=== PATIENT | male | born 1985 | race Caucasian/White ===

== ENCOUNTER 2020-04-19 15:58 | Emergency (ER) | payer OTHER, SELFPAY ==
[2020-04-19 16:39] VITALS: BP 118/82; PULSE 71; RESP 18; TEMP 37.1; O2SAT 98; BMI 25.7
--- NOTE | 2020-04-19 17:00 | HMH.EDUTC ---
[facility] [place] Clinical Impression: Encounter for laboratory testing for COVID-19 virus Disposition: Home, Self-Care Condition on Discharge: Good Instructions: Preventing the Spread of Coronavirus Discharge Instructions Additional Instructions: Call back to the hospital later this evening around 8pm to see if your test results are back and the result Self quarantine while awaiting your result Return if needed straight to ER if any life threatening symptoms Referrals: PCP,No [Primary Care Provider] - As needed Time of Disposition: 17:03 Medical Decision Making - Luciano Inquiry Pt receiving controlled substance: No Luciano was queried for this patient: No Vital Signs: 04/19/20 16:39 Temperature 98.8 F Temperature Source Oral Pulse Rate [Right Brachial] 71 Respiratory Rate 18 Blood Pressure [Right Arm] 118/82 Blood Pressure Mean [Right Arm] 94 Blood Pressure Source [Right Arm] Automatic Cuff Blood Pressure Position [Right Arm] Sitting 02 Sat by Pulse Oximetry 98 Oxygen Delivery Method Room Air Orders (Tests/Meds): ORDERS Category Date Time Status Covid-19 Nasal PCR ([facility]) Routine Lab 04/19/20 16:40 Received [facility] [place] - General Stated complaint: COVID Testing Time Seen by Provider: 04/19/20 17:00 Mode of Arrival: Ambulatory Source of Information: Patient Limitations: No Limitations Description of Symptoms (Recalled from Triage Doc. by RN): PATIENT REQUESTING COVID TEST. 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 some wearing masks and others not no sure if he may have been exposed to COVID Denies any symptoms at this time - Related Data Allergies Allergy/AdvReac Type Severity Reaction Status Date / Time No Known Allergies Allergy Verified 04/19/20 16:42 - Worker's Comp Is this a Worker's Comp case?: No [facility] History - Hepatitis A Screen Drug use history?: No High risk sexual behaviors?: No History of sexually transmitted infection?: No Currently employed?: No Childcare worker?: No Do you have indoor plumbing?: Yes Do you have electricity?: Yes Attestation statement:: This patient has been screened for Hepatitis A risk factors. I have reviewed the patient's past medical history: Yes Laterality Cases: Bilateral: Tonsillectomy - Social History Alcohol Intake: never Occupational Status: other ROS Obtained: Yes All systems reviewed & no additional complaints, Yes Systems reviewed as appropriate & no additional complaints - Constitutional Constitutional: Reports system reviewed and no additional complaints, except as docu, Denies body ache, Denies chills, Denies fever(s), Denies headache(s) - ENT Ears, Nose, Mouth, and Throat: Denies otalgia, Denies sinus pain, Denies sinus pressure, Denies sore throat - Cardiovascular Cardiovascular: Reports system reviewed and no additional complaints, except as docu, Denies chest pain, Denies dyspnea - Respiratory Respiratory: No chest congestion, No cough, No dyspnea - Gastrointestinal Gastrointestingal: Reports: system reviewed and no additional complaints, except as docu Physical Exam - General General appearance: alert, in no apparent distress - ENT ENT exam: Present: normal exam, normal oropharynx, mucous membranes moist, TM's normal bilaterally, normal external ear exam - Respiratory Respiratory exam: Present: normal lung sounds bilaterally. Absent: respiratory distress - Cardiovascular Cardiovascular exam: Present: regular rate, normal rhythm. Absent: JVD - Abdominal Exam Abdominal exam: Present: so
[2020-04-19 17:19] VITALS: BP 118/82; PULSE 71; RESP 18; TEMP 37.1; O2SAT 98
== END 2020-04-19 17:24 | disposition home or self-care (01) ==
PROVIDERS: Emergency Provider Nurse Practitioner
DX: Z20.828 Contact with and (suspected) exposure to other viral communicable diseases (principal)
CPT/HCPCS: 99201; U0003

== ENCOUNTER 2020-05-03 19:27 | Emergency (ER) | payer OTHER, SELFPAY ==
[2020-05-03 19:58] VITALS: BP 132/82; PULSE 83; RESP 20; TEMP 37.1; O2SAT 98; BMI 26.4
[2020-05-03 20:03] LABS: UTC Strep Screen (Rapid) Negative (Negative)
--- NOTE | 2020-05-03 20:08 | HMH.EDUTC ---
[facility] [place] Disposition Clinical Impression: Sore throat (viral), Encounter for laboratory testing for COVID-19 virus Disposition: Home, Self-Care Condition on Discharge: Good Instructions: Sore Throat Additional Instructions: *Monitor Temp, Over the counter Motrin or Tylenol as directed/as needed Tylenol every 4 hours and Motrin every 6 hours (as long as your family doctor has told you that you can take it) for fever or pain. and straight to ER if unable to lower temp less than 101.0 after medication given *Warm salt water gargles may help to soothe the throat *Throat Lozenges *Warm fluids like tea with honey may help to soothe the throat *Sleep elevated *Humidifier/Vaporizer Your throat swab was sent for culture. Those results are typically sent to your primary care. Be sure to follow up in 2-3 days with your family doctor/primary care physician if no improvement so they can review those result and treat if necessary. If you don?t have a primary care doctor, I recommend you get one but in the mean time, you will have to return to a walk in clinic Follow up IMMEDIATELY for new or worsening symptoms or no Noticeable improvement over the next 48-72 hours. 911 for difficulty breathing or swallowing You was tested for today for COVID19 your test result should be back later this evening, you may call back later this evening to see if your test results are back and the result You was given a handout with instructions for Self Quarantine and Self isolation for while you wait on test results and what to do if they are positive Referrals: Tonja Andres PA [Primary Care Provider] - As needed Forms: Work/School Release Time of Disposition: 20:11 Medical Decision Making - Luciano Inquiry Pt receiving controlled substance: No Luciano was queried for this patient: No Vital Signs: 05/03/20 19:58 Temperature 98.7 F Temperature Source Oral Pulse Rate [Right Brachial] 83 Respiratory Rate 20 Blood Pressure [Right Arm] 132/82 Blood Pressure Mean [Right Arm] 98 Blood Pressure Source [Right Arm] Automatic Cuff Blood Pressure Position [Right Arm] Sitting 02 Sat by Pulse Oximetry 98 Oxygen Delivery Method Room Air - Lab Data Lab results reviewed: Yes: I reviewed the patient's lab results. Lab Results 05/03/20 19:54: Strep Scn Rapid Clinic Negative Orders (Tests/Meds): ORDERS Category Date Time Status Covid-19 Nasal PCR ([facility]) Routine Lab 05/03/20 19:54 Received Strep Screen Confirmation Stat Micro 05/03/20 19:54 Received [facility] UTC HPI - General Stated complaint: fever sore throat Time Seen by Provider: 05/03/20 20:08 Mode of Arrival: Ambulatory Source of Information: Patient Limitations: No Limitations Description of Symptoms (Recalled from Triage Doc. by RN): PATIENT C/O SORE THROAT SINCE THIS MORNING. REQUESTING COVID TEST HEENT Symptoms (Recalled from RN notes): No Resp Symptoms (Recalled from RN notes): No Skin Symptoms (Recalled from RN notes): No MS Symptoms (Recalled from RN notes): No Functional Status (Recalled from RN notes): WNL - History of Present Illness Provider Complaint: Patient states that he was recently camping and this morning he woke up with sore throat States that he was concerned that he may have been exposed to COVID wanting to get tested - Related Data Allergies Allergy/AdvReac Type Severity Reaction Status Date / Time No Known Allergies Allergy Verified 04/19/20 16:42 - Worker's Comp Is this a Worker's Comp case?: No [facility] History - Hepatitis A Screen Drug use history?: No High risk sexual behaviors?: No History of sexually transmitted infection?: No Currently employed?: No Childcare worker?: No Do you have indoor plumbing?: Yes Do you have electricity?: Yes Attestation statement:: This patient has been screened for Hepatitis A risk factors. I have reviewed the patient's past medical history: Yes Laterality Cases: Bilateral: Tonsillectomy - Social History Alcoh
[2020-05-03 20:16] VITALS: BP 132/82; PULSE 83; RESP 20; TEMP 37.1; O2SAT 98
== END 2020-05-03 20:23 | disposition home or self-care (01) ==
PROVIDERS: Emergency Provider Nurse Practitioner; PCP Physician Assistant
DX: Z20.828 Contact with and (suspected) exposure to other viral communicable diseases (principal); J02.9 Acute pharyngitis, unspecified
CPT/HCPCS: 87880; 99202; U0003

== ENCOUNTER 2020-06-10 18:24 | Emergency (ER) | payer OTHER, SELFPAY ==
[2020-06-10 19:03] VITALS: BP 142/88; PULSE 85; RESP 18; TEMP 37; O2SAT 98; BMI 25.7
--- NOTE | 2020-06-10 19:08 | HMH.EDUTC ---
[facility] [place] Disposition Clinical Impression: Encounter for laboratory testing for COVID-19 virus, Sore throat (viral) Disposition: Home, Self-Care Condition on Discharge: Good Instructions: DI for Cough -- Adult, Benzonatate, Preventing the Spread of Coronavirus Discharge Instructions Additional Instructions: *Monitor Temp, Over the counter Motrin or Tylenol as directed/as needed Tylenol every 4 hours and Motrin every 6 hours (as long as your family doctor has told you that you can take it) for fever or pain. and straight to ER if unable to lower temp less than 101.0 after medication given *Warm salt water gargles may help to soothe the throat *Throat Lozenges *Warm fluids like tea with honey may help to soothe the throat *Sleep elevated *Humidifier/Vaporizer *Flonase 2 sprays in each nostril daily but be aware that it may take 2-3 days before you notice improvement Your throat swab was sent for culture. Those results are typically sent to your primary care. Be sure to follow up in 2-3 days with your family doctor/primary care physician if no improvement so they can review those result and treat if necessary. If you don?t have a primary care doctor, I recommend you get one but in the mean time, you will have to return to a walk in clinic Follow up IMMEDIATELY for new or worsening symptoms or no Noticeable improvement over the next 48-72 hours. 911 for difficulty breathing or swallowing You was tested for today for COVID19 your test result should be back in the next 24-48 hours, you may call to the [facility] later today or tomorrow to see if your test results are back and the result [phone] [facility] hours are 9am-9pm You was given a handout with instructions for Self Quarantine and Self isolation for while you wait on test results and what to do if they are positive If you are positive the Health Dept will be contacting you also Prescriptions: Fluticasone Propionate [Flonase 50mcg nasal spray 16gm] 1 spr NS DAILY #1 bottle Transmission Status: Pending to [facility] Benzonatate [Tessalon Perle 100mg Cap*] 100 mg PO TID PRN #15 cap PRN Reason: Cough Transmission Status: Pending to [facility] Referrals: Tonja Andres PA [Primary Care Provider] - As needed Forms: Work/School Release Time of Disposition: 19:12 Medical Decision Making - Luciano Inquiry Pt receiving controlled substance: No Luciano was queried for this patient: No Vital Signs: 06/10/20 19:03 Temperature 98.6 F Temperature Source Oral Pulse Rate [Radial] 85 Respiratory Rate 18 Blood Pressure [Right Arm] 142/88 H Blood Pressure Mean [Right Arm] 106 Blood Pressure Source [Right Arm] Automatic Cuff Blood Pressure Position [Right Arm] Sitting 02 Sat by Pulse Oximetry 98 Oxygen Delivery Method Room Air - Lab Data Lab results reviewed: Yes: I reviewed the patient's lab results. Orders (Tests/Meds): ORDERS Category Date Time Status Covid-19 Nasal PCR ([facility]) Routine Lab 06/10/20 18:40 Received [facility] [place] HPI - General Stated complaint: wants covid tested Time Seen by Provider: 06/10/20 19:08 Mode of Arrival: Ambulatory Source of Information: Patient Limitations: No Limitations Description of Symptoms (Recalled from Triage Doc. 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
[2020-06-10 19:43] VITALS: BP 142/88; PULSE 85; RESP 18; TEMP 37; O2SAT 98
[2020-06-10 20:18] LABS: UTC Strep Screen (Rapid) Negative (Negative)
== END 2020-06-10 19:43 | disposition home or self-care (01) ==
PROVIDERS: Emergency Provider Nurse Practitioner; PCP Physician Assistant
DX: Z20.828 Contact with and (suspected) exposure to other viral communicable diseases (principal)
CPT/HCPCS: 87880; 99202; U0003

== ENCOUNTER 2024-01-27 21:30 | Emergency (ER) | payer OTHER, SELFPAY ==
[2024-01-27 21:32] VITALS: BP 142/97; PULSE 100; RESP 20; TEMP 36.6; O2SAT 97; BMI 22.8
--- NOTE | 2024-01-27 21:46 | ED_ITS ---
<Statement entered by Drake Weiner MD - 01/27/24 23:30> I was consulted by the ROMERO, and we discussed the complexity of the problems being addressed. I approved the treatment and management plan for this patient's care in the emergency department, thus performing a substantive portion of the medical decision making. Drake Weiner MD Discharge Plan Disposition Patient Disposition: Home, Self-Care Condition: Good Prescriptions Prescriptions: New cephalexin 500 mg capsule 500 mg PO BID 7 Days Qty: 14 0RF No Action benzonatate 100 MG capsule 100 mg PO TID PRN (Reason: Cough) Qty: 15 0RF fluticasone propionate 120 SPR/BOT bottle 1 spr NS DAILY Qty: 1 0RF Rx Instructions: each nostril daily Referrals Follow up/Referrals: Tonja Andres PA [Primary Care Provider] - See instructions Activity Restrictions/Add. Instructions Additional Instructions/Restrictions: You may wash with soap and water. Sutures need to come out in about 5 days. Sent a prescription for Keflex into the pharmacy. Take these antibiotics as directed, do not skip doses, do not stop taking them early. As discussed avoid foods that are difficult to chew to avoid worsening your jaw pain. Take Tylenol or ibuprofen if needed for pain, do not exceed the recommended dose on the bottle. Return to ER for any worsening signs or symptoms including pain redness or drainage. Clinical Impressions Clinical Impression: Laceration Instructions Patient Instructions: DI for Laceration Repair Discharge ED Provider: Drake Weiner General Adult HPI <SHWETHA Millan - Last Filed: 01/27/24 23:29> General Chief complaint: Wound/Laceration Stated complaint: AO 01-27-24 hit chin with laceration Time Seen by Provider: 01/27/24 21:43 Mode of Arrival: Ambulatory Source of Information: Patient Limitations: No Limitations Description of Symptoms (Recalled from ER Triage Doc. by RN): Patient presents to ED with small laceration to left side of chin after diving for a ball romero. 1 hour ago. bleeding is controlled. Patient also reports pain to his right side of jaw. History of Present Illness HPI narrative: Patient presents for evaluation of a laceration to his chin and jaw pain. Patient was playing shortstop in a softball game and dove for a ball striking his chin on the dirt. Patient felt an immediate pain in his right TMJ and had difficulty opening his mouth. He denies loss of consciousness neck pain headache chest pain shortness of breath fever chills hemoptysis hematochezia melena nausea vomit diarrhea. He did suffer a laceration on the mental aspect of his face and initially was unable to open his jaw but currently can in the emergency department. Speech is intact. Bite feels normal to him but painful. Related Data Previous Rx's Medication Instructions Recorded benzonatate 100 mg capsule 100 mg PO TID PRN Cough #15 caps 06/10/20 fluticasone propionate 50 1 spr NS DAILY ##1 06/10/20 mcg/actuation nasal spray,suspension cephalexin 500 mg capsule 500 mg PO BID 7 days #14 caps 01/27/24 Allergies Allergy/AdvReac Type Severity Reaction Status Date / Time No Known Allergies Allergy Verified 04/19/20 16:42 [facility] <SHWETHA Millan - Last Filed: 01/27/24 23:29> [facility] Disclaimer: The information contained in this section may have been updated after the patient was seen, as this information can be updated by other users. Social History Smoking Status: Current every day smoker alcohol intake: never current occupational status: employed Travel in the last 8 weeks: None housing: house <SHWETHA Millan - Last Filed: 01/27/24 23:29> ROS Obtained: Yes Systems reviewed as appropriate & no additional complaints except as documented Physical Exam <SHWETHA Millan - Last Filed: 01/27/24 23:29> General General appearance: alert and in no apparent distress Eye Eye exam: Present normal appearance and EOMI ENT ENT exam: Present normal exam, normal oropharynx, mucous membranes moist and other (Patient has tenderness to palpation at the right TMJ however I cannot palpate any bony deformity. Bite appears to occlude normally. Patient does have 2 small lacerations on his chin in the dependent aspect.) Neck Neck exam: Present normal inspection and full ROM; Absent tenderness or lymphadenopathy Chest Chest inspection: Present normal inspection and symmetric chest wall rise Respiratory Respiratory exam: Present normal lung sounds bilaterally Cardiovascular Cardiovascular exam: Present regular rate, normal rhythm, normal heart sounds and +S2 Neurological Exam Neurological exam: Present alert and oriented X3 Medical Decision Making <SHWETHA Millan Last Filed: 01/27/24 23:29> Medical Records Medical records reviewed: Yes I reviewed the patient's medical records. Luciano Inquiry Pt receiving controlled substance: No Vital Signs: 01/27/24 21:32 Temperature 97.8 F Temperature Source Oral Pulse Rate [Right Radial] 100 H Respiratory Rate 20 Blood Pressure [Right Arm] 142/97 H Blood Pressure Mean [Right Arm] 112 Blood Pressure Source [Right Arm] Automatic Cuff Blood Pressure Position [Right Arm] Sitting 02 Sat by Pulse Oximetry 97 Oxygen Delivery Method Room Air Orders (Tests/Meds): ED MEDICATIONS Discontinued Medications Generic Name Dose Route Start Last Admin Trade Name Freq PRN Reason Stop Dose Admin Cephalexin HCl 500 mg 01/27/24 22:06 01/27/24 22:17 Cephalexin 500mg Capsule PO 01/27/24 22:07 500 mg ONCE ONE Administration Lidocaine HCl 5 ml 01/27/24 22:07 01/27/24 22:17 Lidocaine 1% 10ml Mdv SQ 01/27/24 22:08 5 ml ONCE ONE Administration Tetanus/Reduced Diphtheria/Acell Pertussis 0.5 ml 01/27/24 22:06 01/27/24 22:17 Tet/Diphth/Pert-Adult 0.5ml Syringe IM 01/27/24 22:07 0.5 ml .ONCE ONE Administration ORDERS Category Date Time Status CT cervical spine wo con Stat Cat Scan 01/27/24 22:[address] facial bones wo con Stat Cat Scan 01/27/24 22:[address] head/brain wo con Stat Cat Scan 01/27/24 22:01 Completed Medical Decision Narrative: In summary patient is a in summary patient is a [age, sex] who presents to the emergency department for evaluation of blunt force trauma to the face laceration. Patient is hemodynamically stable upon arrival, afebrile with a Magnolia Coma Score 15. Physical exam is remarkable for tenderness to palpation at the right TMJ without evidence of dislocation or deformity. It is exquisit peewee tender to palpate as well as difficult and painful for the patient opens mouth initially. Patient also has a 1.25 cm laceration x 2 on his dependent aspect of his chin in the midline. No bony deformity noted. All teeth are intact. All teeth alignment appear to be intact.. Differential diagnosis includes laceration versus jaw dislocation versus mandible fracture etc. Initial workup will be conducted with CT scan of the head neck and facial bones. Initial interventions include Tylenol Motrin Tdap. Initial workup is ordered and pending at the time of handoff to Dr. Jha at 2300 hrs. Laceration repaired with 6 6.0 nylon erupted sutures. Patient given first dose of Keflex and prescription sent to his pharmacy. <Kenn Jha MD - Last Filed: 01/28/24 00:22> Vital Signs: 01/27/24 21:32 Temperature 97.8 F Temperature Source Oral Pulse Rate [Right Radial] 100 H Respiratory Rate 20 Blood Pressure [Right Arm] 142/97 H Blood Pressure Mean [Right Arm] 112 Blood Pressure Source [Right Arm] Automatic Cuff Blood Pressure Position [Right Arm] Sitting 02 Sat by Pulse Oximetry 97 Oxygen Delivery Method Room Air Orders (Tests/Meds): ED MEDICATIONS Discontinued Medications Generic Name Dose Route Start Last Admin Trade Name Freq PRN Reason Stop Dose Admin Cephalexin HCl 500 mg 01/27/24 22:06 01/27/24 22:17 Cephalexin 500mg Capsule PO 01/27/24 22:07 500 mg ONCE ONE Administration Lidocaine HCl 5 ml 01/27/24 22:07 01/27/24 22:17 Lidocaine 1% 10ml Mdv SQ 01/27/24 22:08 5 ml ONCE ONE Administration Tetanus/Reduced Diphtheria/Acell Pertussis 0.5 ml 01/27/24 22:06 01/27/24 22:17 Tet/Diphth/Pert-Adult 0.5ml Syringe IM 01/27/24 22:07 0.5 ml .ONCE ONE Administration ORDERS Category Date Time Status CT cervical spine wo con Stat Cat Scan 01/27/24 22:[address] facial bones wo con Stat Cat Scan 01/27/24 22:[address] head/brain wo con Stat Cat Scan 01/27/24 22:01 Completed Medical Decision Narrative: In summary patient is a in summary patient is a [age, sex] who presents to the emergency department for evaluation of blunt force trauma to the face laceration. Patient is hemodynamically stable upon arrival, afebrile with a Magnolia Coma Score 15. Physical exam is remarkable for tenderness to palpation at the right TMJ without evidence of dislocation or deformity. It is exquisitely tender to palpate as well as difficult and painful for the patient opens mouth initially. Patient also has a 1.25 cm laceration x 2 on his dependent aspect of his chin in the midline. No bony deformity noted. All teeth are intact. All teeth alignment appear to be intact.. Differential diagnosis includes laceration versus jaw dislocation versus mandible fracture etc. Initial workup will be conducted with CT scan of the head neck and facial bones. Initial interventions include Tylenol Motrin Tdap. Initial workup is ordered and pending at the time of handoff to Dr. Jha at 2300 hrs. Laceration repaired with 6 6.0 nylon erupted sutures. Patient given first dose of Keflex and prescription sent to his pharmacy. Jha: Upon my assumption of care patient is stable and resting comfortably. I agree with the assessment and plan from the initial providers. Wound has already been repaired and is well-approximated. CT imaging was pending. CT head personally interpreted does not demonstrate acute intracranial abnormality, no bleed or skull fracture, I also personally interpreted CT face and do not appreciate any facial fracture or obvious disruption of the TMJ. See radiology read for final interpretation. Radiology reads were in agreement and no acute traumatic injuries were identified on imaging. On reassessment patient continues to be stable. He states his jaw still feels somewhat tight but he is able to open and close it and is comfortable with the plan for discharge. Cephalexin have been prescribed for outpatient management of wound. Patient was given instructions on symptomatic management, follow up instructions, and return precautions for the emergency department. Patient indicated understanding and was discharged in stable condition. Procedures <SHWETHA Millan - Last Filed: 01/27/24 23:29> Laceration Laceration 1: Site: face (Chin) Size (cm): 2.5 Description: linear Depth: simple, single layer and involves subcutaneous layer Local Anesthetic: lidocaine 1% Amount of anesthesia used (mL): 5 Pre-repair: wound explored, irrigated extensively and deep structures intact Skin layer closed with: nylon Size (cm): 6-0 Number of sutures: 6 Technique: simple, interrupted Critical Care <SHWETHA Millan - Last Filed: 01/27/24 23:29> Critical Care Time Critical Care Time: No
--- NOTE | 2024-01-27 22:01 | CT_ITS ---
PROCEDURE INFORMATION: Exam: CT Maxillofacial Without Contrast Exam date and time: 01/27/2024 11:22 PM Age: 38 years old Clinical indication: Jaw pain; Additional info: Trauma TECHNIQUE: Imaging protocol: Computed tomography of the face without contrast. Radiation optimization: All CT scans at this facility use at least one of these dose optimization techniques: automated exposure control; mA and/or kV adjustment per patient size (includes targeted exams where dose is matched to clinical indication); or iterative reconstruction. COMPARISON: CT HEAD/BRAIN WO CON 01/27/2024 11:19 PM FINDINGS: Orbital cavities: Orbits are normal. Globes are unremarkable. Paranasal sinuses: Normal. No air-fluid levels. Bones: No acute fracture. Mandible appears intact. Soft tissues: Unremarkable. IMPRESSION: No acute findings.
--- NOTE | 2024-01-27 22:01 | CT_ITS ---
PROCEDURE INFORMATION: Exam: CT Cervical Spine Without Contrast Exam date and time: 01/27/2024 11:24 PM Age: 38 years old Clinical indication: Injury or trauma; Other: Dove for ball and hit chin; Other: Pain TECHNIQUE: Imaging protocol: Computed tomography of the cervical spine without contrast. Radiation optimization: All CT scans at this facility use at least one of these dose optimization techniques: automated exposure control; mA and/or kV adjustment per patient size (includes targeted exams where dose is matched to clinical indication); or iterative reconstruction. COMPARISON: CT FACIAL BONES WO CON 01/27/2024 11:22 PM FINDINGS: Bones: Vertebral body heights and lateral alignment maintained. No acute fracture or posttraumatic subluxation identified. Grossly the central canal is adequate in the cervical region. Lungs: Lung apices are normal. Soft tissues: Unremarkable. IMPRESSION: No acute fracture or posttraumatic subluxation.
--- NOTE | 2024-01-27 22:01 | CT_ITS ---
PROCEDURE INFORMATION: Exam: CT Head Without Contrast Exam date and time: 01/27/2024 11:19 PM Age: 38 years old Clinical indication: Other: Right sided jaw pain; Additional info: Trauma TECHNIQUE: Imaging protocol: Computed tomography of the head without contrast. Radiation optimization: All CT scans at this facility use at least one of these dose optimization techniques: automated exposure control; mA and/or kV adjustment per patient size (includes targeted exams where dose is matched to clinical indication); or iterative reconstruction. COMPARISON: CT HEAD/BRAIN WO CON 01/27/2024 11:19 PM FINDINGS: Brain: No evidence for acute intracranial hemorrhage, mass effect, or acute infarct by CT. Normal rausch-white matter differentiation in the cerebral hemispheres. Cerebral ventricles: No ventriculomegaly. Paranasal sinuses: Visualized sinuses are unremarkable. No fluid levels. Mastoid air cells: Visualized mastoid air cells are well aerated. Bones: Unremarkable. No acute fracture. Soft tissues: Unremarkable. IMPRESSION: No acute intracranial abnormality.
[2024-01-27] MEDS: cephALEXin 500MG CAPSULE 500 MG PO (22:17)
[2024-01-27] MEDS: TET/DIPHTH/PERT-ADULT 0.5ML SYRINGE 0.5 ML IM (22:17)
[2024-01-27] MEDS: LIDOCAINE 1% 10ML MDV 5 ML SQ (22:17)
[2024-01-28 00:35] VITALS: BP 128/77; PULSE 82; RESP 18; TEMP 36.6; O2SAT 99
== END 2024-01-28 00:36 | disposition home or self-care (01) ==
PROVIDERS: Emergency Provider Emergency Medicine; PCP Physician Assistant
DX: S01.81XA Laceration without foreign body of other part of head, initial encounter (principal); Z23 Encounter for immunization; R68.84 Jaw pain; F17.210 Nicotine dependence, cigarettes, uncomplicated; W22.8XXA Striking against or struck by other objects, initial encounter; Y93.69 Activity, other involving other sports and athletics played as a team or group
CPT/HCPCS: 12011; 70450; 70486; 72125; 90471; 90715; 99285